=== PATIENT | female | born 1955 | race Caucasian/White ===

== ENCOUNTER 2019-07-17 14:02 | Outpatient (CLI) | payer BC ==
--- NOTE | 2019-07-17 15:52 | BD ---
Exam: DEXA Bone Density 07/17/19 HISTORY: Postmenopausal screening for osteoporosis. Lumbar Spine: BMD (g/cm2) T-SCORE Z-SCORE L1 0.676 -2.9 -1.4 L2 0.746 -2.6 -1.0 L3 0.768 -2.9 -1.2 L4 0.827 -2.1 -0.4 L1-L4 0.761 -2.6 -1.0 Femoral Neck: 0.499 -3.2 -1.7 Total Femur: 0.716 -1.9 -0.7 Impression: Osteoporosis. POS: [facility]
== END 2019-07-17 14:03 | disposition home or self-care (01) ==
LOC: BICMAMMO 14:02
PROVIDERS: ATTEND Obstetrics & Gynecology
DX: Z13.820 Encounter for screening for osteoporosis (principal); M81.0 Age-related osteoporosis without current pathological fracture
CPT/HCPCS: 77080

== ENCOUNTER 2020-04-29 09:23 | Outpatient (CLI) | payer BC, OTHER | END 2020-04-29 09:24 | disposition home or self-care (01) | LOC: LABBT 09:23 | PROVIDERS: ATTEND Internal Medicine Gastroenterology | DX: Z01.812 Encounter for preprocedural laboratory examination (principal); Z11.59 Encounter for screening for other viral diseases; Z12.11 Encounter for screening for malignant neoplasm of colon | CPT/HCPCS: 87635; U0003 ==

== ENCOUNTER 2020-05-02 06:03 | Day surgery (SDC) | payer BC ==
[2020-04-28 11:47] VITALS: BMI 21.3
--- NOTE | 2020-05-02 00:42 | HP ---
HISTORY OF PRESENT ILLNESS: This is a 64-year-old female, comes for a colonoscopy for colon cancer screening. The patient has no specific GI symptoms. The patient has history of colon polyp several years ago. The patient has history of chronic abdominal pain over the years. The patient has negative endoscopy studies in the past. The patient comes for a colonoscopy for colon cancer screening. ALLERGIES: CODEINE SULPHATE. SOCIAL HISTORY: The patient is a former smoker. She drinks alcohol socially. MEDICAL ILLNESSES: 1. Depression. 2. Hyperlipidemia. 3. Osteoporosis. 4. Diverticular disease. PHYSICAL EXAMINATION: GENERAL: She is thin built. VITAL SIGNS: Her pulse is 70 and blood pressure 100/60. HEENT: Conjunctivae are clear. CARDIOVASCULAR SYSTEM: Normal heart sounds. LUNGS: Clear to auscultation. ABDOMEN: Soft. No organomegaly. No tenderness. No masses. ADMITTING DIAGNOSIS: A 64-year-old female, comes for a colonoscopy for colon cancer screening. Job ID: [id number] MTDD
--- NOTE | 2020-05-02 08:33 | OP ---
DATE OF PROCEDURE: 05/02/2020 OPERATIVE PROCEDURE: Colonoscopy. PREOPERATIVE DIAGNOSIS: A 64-year-old female undergoing colonoscopy for colon cancer screening. POSTOPERATIVE DIAGNOSES: 1. Sigmoid diverticular disease and some diverticula over the descending colon. 2. Otherwise normal colonoscopy. DESCRIPTION OF PROCEDURE: The patient was placed on her left lateral position and was given sedation by Anesthesia Department. A rectal exam was done before the scope was advanced into the rectum. No lesions felt on rectal exam. A [employer] video colonoscope was introduced into the rectum and advanced all the way into the cecum. The patient had redundant, tortuous colon. The mucosa appears normal throughout the colon with normal vascular pattern. In the appendiceal orifice, ileocecal wall, cecum, no lesion seen. On withdrawal of scope from the cecum to ascending colon, hepatic flexure, transverse colon, splenic flexure, no lesion. The descending colon showed occasional diverticula. The sigmoid colon is tortuous and redundant. She had scattered diverticular disease. Retroflexion of scope in the rectum showed no pathology. DISCHARGE PLAN: This is a 64-year-old female who came for colonoscopy for colon cancer screening. The colonoscopy showed scattered sigmoid diverticular disease, redundant colon. She did well postprocedure and is being discharged home. DISCHARGE INSTRUCTIONS: 1. The patient advised to call me if she develops abdominal pain, hematochezia. 2. High-fiber diet. 3. Metamucil once a day. 4. Repeat colonoscopy in 5 years. Job ID: [id number]
[2020-05-02] MEDS ORDERED: Lidocaine 1% PF 5 ML VIAL ONE (10:25)
[2020-05-02] MEDS ORDERED: PROPOFOL 200 MG/20 ML VIAL ONE (10:25)
[2020-05-02] MEDS ORDERED: EPHEDRINE 25 MG/5 ML SYRINGE ONE (10:25)
== END 2020-05-02 08:48 | disposition home or self-care (01) ==
LOC: SDC 06:03
PROVIDERS: ATTEND Internal Medicine Gastroenterology
PROC: 0DJD8ZZ Inspection of Lower Intestinal Tract, Via Natural or Artificial Opening Endoscopic (ICD-10-PCS; principal; 2020-05-02)
DX: Z12.11 Encounter for screening for malignant neoplasm of colon (principal); K57.30 Diverticulosis of large intestine without perforation or abscess without bleeding; E78.5 Hyperlipidemia, unspecified; F32.9 Major depressive disorder, single episode, unspecified; M81.0 Age-related osteoporosis without current pathological fracture; Z87.891 Personal history of nicotine dependence; Z88.5 Allergy status to narcotic agent
CPT/HCPCS: J2001; J2704